=== PATIENT | female | born 1985 | race Caucasian/White ===

== ENCOUNTER 2017-10-07 10:17 | Emergency (ER) | payer OTHER ==
[~2017-10-07] VITALS: Ht 170.2 cm; Wt 69.5 kg
[2017-10-07 10:23] VITALS: TEMP 99
[2017-10-07 13:47] VITALS: BP 119/72; PULSE 76
== END 2017-10-07 13:53 | disposition home or self-care (01) ==
LOC: COL.ER 10:17
DX: O20.0 Threatened abortion (principal); Z3A.12 12 weeks gestation of pregnancy

== ENCOUNTER → 2017-11-08 | Outpatient (CLI) | payer OTHER | LOC: COL.RAD 15:44 | DX: O20.9 Hemorrhage in early pregnancy, unspecified (principal); Z3A.17 17 weeks gestation of pregnancy; Z36.9 Encounter for antenatal screening, unspecified ==